=== PATIENT | male | born 1935 | race Caucasian/White ===

== ENCOUNTER 2018-11-10 11:09 | Inpatient (IN) ==
--- NOTE | 2018-11-10 13:03 | PROVIDER DOCUMENTATION ---
This chart was entered by Theresa Arthur Scribe, acting as scribe for Krystle Tuttle CRNP. HPI-General Adult - General Chief Complaint: Abnormal Lab[s] Stated Complaint: LOW BLOOD Time Seen by Provider: 11/10/18 12:13 Source: patient Allergies/Adverse Reactions: Patient Allergies Allergy/AdvReac Type Severity Reaction Status Date / Time No Known Allergies Allergy Verified 10/15/13 10:15 Home Medications: Home Medication List Medication Instructions Recorded Confirmed Last Taken Type ATORVAstatin [Lipitor] 40 mg PO DAILY 09/20/13 11/10/18 11/10/18 History Aspirin 81 mg PO DAILY 09/20/13 11/10/18 11/10/18 History Fenofibrate [Fenoglide] 134 mg PO DAILY 09/20/13 11/10/18 11/10/18 History Methyldopa 500 mg PO BID 09/20/13 11/10/18 11/10/18 History Omeprazole 40 mg PO DAILY 09/20/13 11/10/18 11/10/18 History Carvedilol [Coreg] 6.25 mg PO TID #0 09/28/13 11/10/18 11/10/18 Rx Hydralazine [Apresoline] 75 mg PO TID@0600,1300,2000 #0 09/28/13 11/10/18 Rx tablet Isosorbide Dinitrate [Isordil] 40 mg PO TID@0600,1300,2000 #0 09/28/13 11/10/18 11/10/18 Rx tablet - History of Present Illness -Gen Adult Nature of Presenting Problems: Patient is a 82 year old male who presents to the ED with abnormal labs. Patient states he had blood work done and was called this morning and informed to go to the ER. Patient denies pain, shortness of breath, nausea, vomiting and headache. Location of Pain/Injury: reports: none Pain Radiation: reports: no radiation Quality of Pain: reports: none Severity: reports: mild Timing: reports: still present Context/Activities at Onset: reports: light activity Modifying Factors: improves with: nothing Associated Symptoms: reports: denies symptoms Similar Symptoms Previously?: No Recently seen or treated by another doctor?: Yes Review of Systems - Adult - REVIEW OF SYSTEMS - ADULT Constitutional: reports: no symptoms reported Eyes: reports: no symptoms reported Ears, Nose, Mouth & Throat: reports: no symptoms reported Cardiovascular: reports: no symptoms reported Respiratory: reports: no symptoms reported Gastrointestinal: reports: no symptoms reported Genitourinary: reports: no symptoms reported Musculoskeletal: reports: no symptoms reported Integumentary: reports: no symptoms reported Neurological: reports: no symptoms reported Psychiatric: reports: no symptoms reported Endocrine: reports: no symptoms reported Hematologic/Lymphatic: reports: no symptoms reported Allergic/Immunologic: reports: no symptoms reported All Other Systems: Reviewed and Negative Past History - Adult - PAST MEDICAL HISTORY-ADULT Review of Records: reports: Nursing Assessment Review, Medications Reviewed, Social history reviewed & non-contributory. Major Childhood Illnesses: reports: denies history Cardiovascular: reports: CHF, HTN, hyperlipidemia Respiratory: reports: sleep apnea Gastrointestinal: reports: denies history Obstetrical/Gynecological: reports: denies history Genitourinary: reports: denies history Musculoskeletal: reports: denies history Neurological: reports: dementia Psychiatric: reports: denies history Endocrine/Immune: reports: denies history Other Conditions: reports: denies history - PRIOR SURGERIES/PROCEDURES Surgical/Procedure History: reports: reviewed, not pertinent - IMMUNIZATION STATUS Childhood Immunizations: See Nurse Assessment Flu Vaccine: See Nurse Assessment - FAMILY HISTORY Family History: reviewed, not pertinent - SOCIAL HISTORY Smoking: denies Substance Use: denies Physical Exam-General - PHYSICAL EXAM-ADULT Initial Vital Signs Reviewed: Yes - CONSTITUTIONAL General Appearance: alert, no apparent distress - EYES Eyes: PERRL/EOMI, pink conjunctivae - HEAD, EARS, NOSE, MOUTH & THROAT HENMT: normocephalic/atraumatic, moist mucous membranes, normal ENT inspection - RESPIRATORY Respiratory: chest non-tender, lungs clear, normal breath sounds - CARDIOVASCULAR Cardiovascular: normal peripheral pulses, regular rate, rhythm - GASTROINTESTINAL (ABDOMEN) Abdominal Exam: normal bowel sounds, non tender, soft - LYMPHATIC Lymphatic: no adenopathy - MUSCULOSKELETAL Back Exam: normal inspection Extremity: non-tender, normal inspection - SKIN Integumentary: normal color, normal turgor, warm/dry - NEUROLOGIC Neurologic: grossly normal, no motor/sensory deficits - PSYCHIATRIC Psych/Mental Status: normal mood/affect, oriented x 3 Progress - PLAN OF CARE/RESULTS Progress/Plan/Lab Results: Vital Signs - 8 hr 11/10/18 11:55 Temperature 97.8 F Pulse Rate 69 Respiratory Rate 20 Blood Pressure 168/64 O2 Sat by Pulse Oximetry 96 Orders Category Date Time Status Saline Loc NOW Care 11/10/18 12:37 Active CHEST-1 VIEW [RAD] Stat Exams 11/10/18 12:38 Ordered CBC WITH ELECTRONIC DIFF [HEME] Stat Lab 11/10/18 12:37 Uncollected CK PROFILE [SP CHEM] Stat Lab 11/10/18 12:37 Uncollected COMPREHENSIVE METABOLIC PANEL [CHEM] Stat Lab 11/10/18 12:37 Uncollected PRO B-NATRIURETIC PEPTIDE Stat Lab 11/10/18 12:37 Uncollected TYPE & SCREEN [BBK] Stat Lab 11/10/18 12:38 Uncollected URINALYSIS W/POSS RFLX CULT [URINALYSIS] Stat Lab 11/10/18 12:37 Uncollected Result Diagrams: 11/10/18 13:30 11/10/18 17:50 - EKG 1 Time of EKG reading by physician:: 15:19 EKG Read and Signed by:: Alek Shelton EKG Interpretation (*Must complete 3 of following elements*): Abnormal Rate: 65 Rhythm: AV dual-paced rhythm with prolonged AV conduction Comments: abnormal ECG - XRAY 1 XRAY Study: Chest Impression: See EMR Report ( EXAM: CHEST-1 VIEW - 11/10/2018 HISTORY: CHF TECHNIQUE: Portable chest COMPARISON: 06/10/2014 FINDINGS: Heart size appears heart size appears borderline enlarged and stable. There has been interval insertion of transvenous cardiac pacemaker. The lungs appear essentially clear. There is no substantial pleural effusion or pneumothorax identified. IMPRESSION: No discrete evidence of acute disease. Electronically signed by Ruddy Ponce 11/10/2018 1:43 PM 11/10/18 1343 Interpreting Physician: Ruddy Ponce MD Dictated Date/Time: 11/10 1342 cc: Krystle Tuttle; Toni Gong MD) - CONSULTS/PCP/HOSPITALIST Notification #1 *Consult/PCP/Hospitalist*: Dr. Rojo Time Discussed: 14:28 Reason/Comments: Consult Consult Disposition: other (Transfuse 1 unit and if not ill can go home but needs to follow up with GI.) #2 Consult: Dr. Gong Time Discussed: 19:12 Reason/Comments: Admission Consult Disposition: Will see in ED, Admit (Give 30 mg kayexulate) Departure - Departure Date of Disposition Decision: 11/10/18 Time of Disposition Decision: 18:38 DIAGNOSIS: Hyperkalemia, End stage renal disease Anemia Qualifiers: Anemia type: unspecified type Qualified Code(s): D64.9 - Anemia, unspecified Diabetes Qualifiers: Diabetes mellitus type: type 1 Diabetes mellitus complication status: without complication Qualified Code(s): E10.9 - Type 1 diabetes mellitus without complications Disposition: ADMITTED INPATIENT 09 Certified Medical Emergency: Emergent Condition: Stable Referrals and Follow-Ups: Toni Gong MD [Primary Care Provider] - - Critical Care Note This patient required my direct & personal management of CC.: No Attestation - Physician/ LUIS MIGUEL Attestation Patient care was provided by Advanced Practice Provider:: Yes Advanced Practice Provider:: Krystle Tuttle Advanced Practice Provider documentation review:: The Mid-level provider documentation, treatment plan and medical decision making was reviewed by the physician who agrees with all treatment and medical decision making by the MLP. The physician spent face to face time with patient:: No Advanced Practice Provider documentation review:: Supervising physician onsite and consulted in the evaluation and care of this patient. The physician did not have a face to face encounter with the patient. This chart was documented by the indicated scribe, (Theresa Arthur Scribe) and accurately reflects the services I performed and decisions made by me, Krystle Tuttle CRNP, as attested by the provider's signature.
--- NOTE | 2018-11-10 13:46 | Diag Imaging Result Doc PS360 ---
EXAM: CHEST-1 VIEW - 11/10/2018 HISTORY: CHF TECHNIQUE: Portable chest COMPARISON: 06/10/2014 FINDINGS: Heart size appears heart size appears borderline enlarged and stable. There has been interval insertion of transvenous cardiac pacemaker. The lungs appear essentially clear. There is no substantial pleural effusion or pneumothorax identified. IMPRESSION: No discrete evidence of acute disease. Electronically signed by Ruddy Ponce 11/10/2018 1:43 PM
[2018-11-10 13:48] LABS: BASO# 0.03 X1000 (0.0-0.2); BASO% 0.4 % (0.0-0.8); EOS# 0.23 X1000 (0.0-0.7); EOS% 3.3 % (0.0-10.0); HEMATOCRIT 23.5 % (42.0-52.0); LYMPH# 2.13 X1000 (1.2-3.4); MCHC 29.8 g/dL (33-37); MCV 97.5 FL (81-99); MONO# 0.45 X1000 (0.11-0.59); MONO% 6.5 % (1.7-9.3); MPV 9.5 FL (7.4-10.4); NEUT# 4.04 X1000 (1.4-6.5); NEUT% 58.8 % (42.2-75.2); PLT 305 X1000 (130-400); RBC 2.41 XMIL (4.7-6.1); RDW 14.6 % (11.5-14.5); WBC 6.88 X1000 (4.8-10.8)
[2018-11-10 14:25] LABS: ALB/GLOB RATIO 1.2; ALBUMIN 3.7 g/dL (3.5-5.0); CALCIUM 8.9 mg/dL (8.8-10.2); CREATININE 2.1 mg/dL (0.7-1.2); TOTAL BILIRUBIN 0.18 mg/dL (0.20-1.00); TOTAL PROTEIN 6.9 g/dL (6.3-8.3)
[2018-11-10 14:26] LABS: POTASSIUM 6.7 mmol/L (3.5-5.1)
[2018-11-10 15:14] LABS: URINE SOURCE CLEAN CATCH
[2018-11-10 15:21] LABS: BILIRUBIN URINE NEGATIVE (NEGATIVE); BLOOD URINE NEGATIVE (NEGATIVE); COLOR STRAW; GLUCOSE URINE NEGATIVE (NEGATIVE); KETONE URINE NEGATIVE (NEGATIVE); LEUKOCYTES URINE SMALL (NEGATIVE); NITRITE URINE NEGATIVE (NEGATIVE); PROTEIN URINE NEGATIVE (NEGATIVE); TURBIDITY URINE CLEAR (CLEAR); UROBILINOGEN URINE NORMAL (NORMAL)
[2018-11-10 15:22] LABS: UR EPITHELIAL CELLS <10 /HPF (<10); URINE BACTERIA NEGATIVE /HPF; URINE RBC <10 /HPF (<10); URINE WBC <10 /HPF (<10)
[2018-11-10] MEDS ORDERED: NS 500 ML ONE (16:23)
[2018-11-10 18:19] LABS: ALB/GLOB RATIO 1.4; ALBUMIN 3.8 g/dL (3.5-5.0); CALCIUM 8.9 mg/dL (8.8-10.2); CREATININE 2.2 mg/dL (0.7-1.2); TOTAL BILIRUBIN 0.2 mg/dL (0.20-1.00); TOTAL PROTEIN 6.5 g/dL (6.3-8.3)
[2018-11-10 18:22] LABS: POTASSIUM 6.4 mmol/L (3.5-5.1)
[2018-11-10] MEDS ORDERED: D50W SYRINGE IV ONE (18:26)
[2018-11-10] MEDS ORDERED: CALCIUM CHLORIDE 1 GM in NS 100 ML IV ONE (18:26)
[2018-11-10] MEDS ORDERED: HUMULIN R IV ONE (18:26)
[2018-11-10] MEDS ORDERED: ALBUTEROL NEB INH ONE (18:26)
--- NOTE | 2018-11-10 18:26 | EKG Report ---
Test Performed on : 11/10/2018 3:19:35 PM Test Reason : elevated k Blood Pressure : / mmHG Vent. Rate : 065 BPM Atrial Rate : 065 BPM P-R Int : 278 ms QRS Dur : 140 ms QT Int : 426 ms P-R-T Axes : -06 -67 041 degrees QTc Int : 443 ms AV dual-paced rhythm with prolonged AV conduction Abnormal ECG No previous ECGs available Unconfirmed Result
[2018-11-10] MEDS ORDERED: KAYEXALATE PO ONE (19:13)
[2018-11-10] MEDS ORDERED: CALCIUM GLUCONATE 1 GM in NS 50 ML IV ONE (19:30)
--- NOTE | 2018-11-10 22:13 | HISTORY AND PHYSICAL ---
PRIMARY CARE PHYSICIAN: Unknown. CHIEF COMPLAINT: Abnormal labs. HISTORY OF PRESENTING ILLNESS: 82-year-old obese male with a history of diabetes mellitus type 2, hypertension, hyperlipidemia, CHF, and obstructive sleep apnea who presented to emergency department due to patient had labs that was done outpatient that were abnormal. 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 In the ED, he was evaluated. He had repeat laboratories drawn which did show that he was hyperkalemic. The patient was apparently treated in the ER with calcium gluconate, insulin, albuterol nebs and he will require admission for further management. At the time of my examination, patient had denied any headache, fever, chills, chest pain, shortness of breath, hemoptysis or any weight changes. Stated that he feels okay. PAST MEDICAL HISTORY: Include diabetes mellitus type 2, hypertension, hyperlipidemia, CHF, sleep apnea, chronic kidney disease. PAST SURGICAL HISTORY: Pacemaker, left wrist surgery. ALLERGIES: No known drug allergies. CURRENT MEDICATIONS: Include aspirin 81 mg p.o. daily, atorvastatin 40 mg p.o. daily, carvedilol 6.25 mg p.o. t.i.d., fenofibrate 134 mg p.o. daily, hydralazine 75 mg p.o. t.i.d., isosorbide dinitrate 40 mg p.o. t.i.d., methyldopa 500 mg p.o. b.i.d., omeprazole 40 mg p.o. daily. SOCIAL HISTORY: Denies any history of smoking, alcohol or illicit drug use. FAMILY HISTORY: Positive for coronary disease in father. REVIEW OF SYSTEMS: Fourteen point review of system as listed in HPI other systems negative. PHYSICAL EXAMINATION: GENERAL: Cooperative, friendly male, he is resting comfortably now. VITAL SIGNS: Temperature 97.8 degrees, pulse 69, respirations 20, blood pressure 168/64. HEENT: Atraumatic, normocephalic. Extraocular movements intact. PERRLA. NECK: No masses. CHEST: Clear to auscultation. CARDIOVASCULAR: Regular rate and rhythm. ABDOMEN: Soft, obese, positive bowel sounds. EXTREMITIES: Trace edema. NEUROLOGIC: He is awake, alert, oriented x3. : No bladder distention. SKIN: Warm. LABORATORIES AND STUDIES: WBC 6.88, hemoglobin 7.1, hematocrit 23.5, platelets 305,000. Sodium 143, potassium 6.7, chloride 115, CO2 is 20, BUN is 54, creatinine is 2.1, glucose 146. ASSESSMENT: An 82-year-old male with a history of diabetes mellitus type 2, hypertension, hyperlipidemia, congestive heart failure and chronic kidney disease who had presented to emergency department with abnormal labs. He apparently had outpatient labs and was called to come to the emergency department. In emergency department he had repeat laboratories done which did show he was hyperkalemic which was stabilized in emergency room and he will require admission for further management. 1. Hyperkalemia. 2. Anemia unspecified. 3. Diabetes mellitus type 2. 4. Hypertension. 5. Chronic kidney disease. PLAN: 1. Will admit patient to medical floor with telemetry. 2. We will continue to monitor patient closely and check his electrolytes. 3. We will check a repeat potassium level. 4. We will transfuse 1 unit of packed red blood cells. 5. Put patient on glycemic protocol with sliding scale insulin regimen. 6. We will monitor blood pressure, resume antihypertensive agent. 7. Put patient on DVT prophylaxis with SCDs. 8. Continue to follow and reassess and make further recommendation based on patient's clinical course. cc: Milan Gong MD
[2018-11-11] MEDS ORDERED: APRESOLINE PO SCH (06:00)
[2018-11-11] MEDS ORDERED: ISORDIL PO SCH (06:00)
[2018-11-11] MEDS ORDERED: HUMULIN R SUBQ SCH (07:00)
[2018-11-11 07:38] LABS: BASO# 0.02 X1000 (0.0-0.2); BASO% 0.3 % (0.0-0.8); EOS# 0.16 X1000 (0.0-0.7); EOS% 2.6 % (0.0-10.0); HEMATOCRIT 26.6 % (42.0-52.0); HEMOGLOBIN 7.7 g/dL (14.0-18.0); IMM GRAN# 0.02 X1000 (0.0-0.04); IMM GRAN% 0.3 % (0.0-0.5); LYMPH# 1.59 X1000 (1.2-3.4); LYMPH% 26.3 % (20.5-51.1); MCHC 28.9 g/dL (33-37); MCV 96.7 FL (81-99); MONO# 0.43 X1000 (0.11-0.59); MONO% 7.1 % (1.7-9.3); MPV 9.8 FL (7.4-10.4); NEUT# 3.83 X1000 (1.4-6.5); NEUT% 63.4 % (42.2-75.2); PLT 319 X1000 (130-400); RBC 2.75 XMIL (4.7-6.1); RDW 14.5 % (11.5-14.5); WBC 6.05 X1000 (4.8-10.8)
[2018-11-11 08:07] LABS: CALCIUM 8.8 mg/dL (8.8-10.2); CREATININE 2.1 mg/dL (0.7-1.2); POTASSIUM 5.8 mmol/L (3.5-5.1)
[2018-11-11] MEDS ORDERED: METHYLDOPA 500 MG PO SCH (09:00)
[2018-11-11] MEDS ORDERED: TRICOR PO SCH (09:00)
[2018-11-11] MEDS ORDERED: ASPIRIN PO SCH (09:00)
[2018-11-11] MEDS ORDERED: PRILOSEC PO SCH (09:00)
[2018-11-11] MEDS ORDERED: LIPITOR PO SCH (09:00)
[2018-11-11] MEDS ORDERED: COREG PO SCH (09:00)
[2018-11-11 09:53] VITALS: BP 184/64
--- NOTE | 2018-11-11 11:42 | DISCHARGE SUMMARY ---
ADMISSION DATE: 11/10/2018 DISCHARGE DATE: 11/11/2018 HISTORY: The patient is a patient of Dr. Toni Gong who came in on 11/10/2015 and wanted to go home the morning of 11/11/2018. He came in on 11/10/2018 and wants to go home the following morning 11/11/2018. He had abnormal labs. REASON FOR ADMISSION: This is an 82-year-old with history of diabetes mellitus type 2, hypertension, hyperlipidemia, congestive heart failure, and obstructive sleep apnea who presented to the emergency department. His labs have been done that were abnormal. Patient says he got his labs early in the morning, and was given a call and told he needed to come down. The patient apparently treated with calcium gluconate, insulin and albuterol. Apparently, he had high potassium. At time of exam, patient felt good. His follow-up potassium was 5.8, and when he presented it was 6.7. Renal function stable at 2.1. Looking over his home medications, he is on Lipitor 40 mg a day, aspirin 81 mg a day, Coreg 6.25 mg a day, Fenoglide which is fenofibrate 134 mg p.o. daily, Apresoline 75 mg t.i.d., Isordil 40 mg t.i.d., methyldopa 500 mg b.i.d., and then omeprazole 40 mg a day. He takes tramadol 37.5-325 1 t.i.d. He does not report any other medications. He does have chronic kidney disease, and I think he can go home. Follow up with Dr. Gong. cc: Parag Vargas MD
== END 2018-11-11 12:20 | disposition home or self-care (01) | DRG 641 ==
LOC: ED 11:09 → SUATTDRO 22:41 → 3N 22:41
PROVIDERS: ATTEND Emergency Medicine
CPT/HCPCS: 36430; 71010; 71045; 80048; 80053; 81001; 82550; 82948; 83880; 85025; 86850; 86900; 86901; 86920; 87088; 93005; 96365; 96375; 99285; A9270; J0610; J7040; P9016; XXXXX